=== PATIENT | female | born 1960 | race Caucasian/White ===

== ENCOUNTER 2023-12-03 08:00 | Outpatient (CLI) | payer BC | END 2023-12-03 16:45 | disposition home or self-care (01) | LOC: SLB 08:00 → SDS 12-05 07:06 → SMU 12-05 07:07 → SDS 12-05 07:07 → EDSTATUS 12-05 09:00 | PROVIDERS: ATTEND Urology | DX: R31.0 Gross hematuria (principal); R30.0 Dysuria; N30.90 Cystitis, unspecified without hematuria | CPT/HCPCS: 87081 ==